=== PATIENT | male | born 1970 | race American Indian/Alaskan Native ===

== ENCOUNTER 2017-09-05 00:55 | Inpatient (IN) | payer OTHER ==
[2017-09-05 01:30] LABS: Basophils # (Auto) 0.2 K/mm3 (0.0-0.1); Basophils % (Auto) 2.5 % (0.0-1.8); Eosinophils # (Auto) 0.4 K/mm3 (0.0-0.4); Eosinophils % (Auto) 3.8 % (0.0-4.3); Hematocrit 40.2 % (35.5-45.6); Hemoglobin 13.9 gm/dl (11.8-15.2); Lymphocytes # (Auto) 3.8 K/mm3 (1.2-5.4); Lymphocytes % (Auto) 39.5 % (13.4-35.0); Mean Corpuscular HGB Conc 35 % (32-34); Mean Corpuscular Hemoglobin 37 pg (28-32); Mean Corpuscular Volume 108 fl (84-94); Monocytes # (Auto) 0.9 K/mm3 (0.0-0.8); Monocytes % (Auto) 8.9 % (0.0-7.3); Platelet Count 158 K/mm3 (140-440); Red Blood Count 3.72 M/mm3 (3.65-5.03); Red Cell Distribution Width 14.2 % (13.2-15.2)
[2017-09-05 02:39] LABS: Alanine Aminotransferase 100 units/L (7-56); Albumin 3.7 g/dL (3.9-5); BUN/Creatinine Ratio 8; Blood Urea Nitrogen 8 mg/dL (9-20); Calcium 8.9 mg/dL (8.4-10.2); Hemolysis Index 10
[2017-09-05] MEDS ORDERED: FOLVITE 1 MG, INFUVITE 10 ML in NACL 0.9% 1000 ML 1,000 ML IV ONE (09:51)
[2017-09-05] MEDS ORDERED: PEPCID IV ONE (09:51)
[2017-09-05] MEDS ORDERED: DILAUDID IV ONE (09:51)
[2017-09-05] MEDS ORDERED: NACL 0.9% 1000 ML 1,000 ML IV ONE (09:51)
[2017-09-05] MEDS ORDERED: ZOFRAN IV ONE (09:51)
[2017-09-05] MEDS ORDERED: ATIVAN IV PRN ×2 (09:52)
[2017-09-05 10:34] LABS: Bilirubin,Urine NEG (Negative); Blood,Urine NEG (Negative); Color,Urine Yellow (Yellow); Mucus,Urine FEW /HPF; Protein,Urine <15 mg/dL mg/dL (Negative)
--- NOTE | 2017-09-05 11:19 | Cat Scan Report ---
CT ABDOMEN PELVIS WITH CONTRAST: HISTORY: abdominal pain. COMPARISON: none. TECHNIQUE: Helical CT in 1.25mm intervals following IV contrast. Sagittal and coronal reconstructions. FINDINGS: Lung bases: Normal. Liver: There is moderate diffuse fatty change throughout the liver. No evidence for mass or surface nodularity. The portal venous system is patent. Biliary system: Normal. Pancreas: A 6.8 cm cyst is identified in the tail of the pancreas, probable pseudocyst. The remaining pancreatic parenchyma is within normal limits. No obvious mass or inflammatory changes. Spleen: Normal. 12.2 cm. Kidneys/ureters/bladder: Normal. Adrenal glands: Normal. Aorta: The aorta is normal caliber with minimal calcific plaques distally. There is mild aneurysmal dilatation of the right common iliac artery measuring up to 2.6 cm. There also appears to be a focal dissection in the right common iliac artery. The remaining iliac arteries are normal. Intestines: Within normal limits given no oral contrast was administered. Appendix: Normal. Ascites: None. Adenopathy: None. Musculoskeletal: Mild thoracolumbar spondylosis is noted. Previous inguinal hernia changes are suspected bilaterally, correlate with history. No recurrent hernia is appreciated. IMPRESSION: No acute inflammatory process. Hepatic steatosis. Pancreatic pseudocyst. 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 This is probably chronic although no comparison studies are available.
--- NOTE | 2017-09-05 12:41 | Emergency Department Report ---
ED Abdominal Pain HPI - General Chief Complaint: Abdominal Pain Stated Complaint: ABD PAIN Time Seen by Provider: 09/05/17 09:39 Source: patient, EMS Mode of arrival: Ambulatory Limitations: No Limitations - History of Present Illness Initial Comments: 47 yo male with a past medical history pancreatitis, bilateral inguinal hernia repair, and alcohol abuse presents to the hospital complaining of epigastric pain is rated 10/10 intensity, sharp, burning, constant, radiating to the back for the past 12 hours prior to arrival. Patient drinks one fifth of whiskey daily with last dose prior to arrival. He gives a history of previous alcohol withdrawal tremors but is unsure if he ever had alcohol withdrawal seizure. This is patient's first visit he states he lives in [place] and she is passing through the [place] area. Severity scale (0 -10): 6 - Related Data Home Medications Medication Instructions Recorded Confirmed Last Taken Unobtainable 09/05/17 09/05/17 Unknown Allergies Allergy/AdvReac Type Severity Reaction Status Date / Time No Known Allergies Allergy Unverified 09/05/17 01:07 ED Review of Systems ROS: Stated complaint: ABD PAIN Other details as noted in HPI Comment: All other systems reviewed and negative Other: Constitutional: No fevers chills Eyes: No eye pain visual changes ENT: No ear pain or throat pain Neck: Denies pain Respiratory: Denies cough wheezing shortness of breath Cardiovascular: Denies chest pain, palpitations, syncope GI: as per hpi : Denies dysuria Musculoskeletal: Denies back pain Skin: Denies rash, lesions, erythema Neurologic: Denies headache, numbness, weakness Psychiatric: Denies suicidal ideation, hallucinations ED Past Medical Hx - Past Medical History Previous Medical History?: Yes Additional medical history: Pancreatitis - Surgical History Past Surgical History?: Yes Additional Surgical History: Hernia - Social History Smoking Status: Current Every Day Smoker Substance Use Type: Alcohol - Medications Home Medications: Home Medications Medication Instructions Recorded Confirmed Last Taken Type Unobtainable 09/05/17 09/05/17 Unknown History ED Physical Exam - General Limitations: No Limitations - Other Other exam information: General: No limitations, patient is alert in no acute distress Head exam: Atraumatic, normocephalic Eyes exam: Normal appearance, pupils equal reactive to light, extraocular movements intact, nonicteric sclera ENT: Moist mucous membrane, normal oropharynx Neck exam: Normal inspection, full range of motion, no meningismus nontender Respiratory exam: Clear to auscultation bilateral, no wheezes, rales, crackles Cardiovascular: Normal rate and rhythm, normal heart sounds Abdomen: Soft, nondistended, epigastric and LUQ tenderness, with normal bowel sounds, no rebound, or guarding Extremity: Full range of motion normal inspection no deformity 2+ DP pulses equal bilaterally Back: Normal Inspection, full range of motion, no tenderness Neurologic: Alert, oriented x3, cranial nerves intact, no motor or sensory deficit Psychiatric: normal affect, normal mood Skin: Warm, dry, intact ED Course Vital Signs 09/05/17 09/05/17 09/05/17 01:02 01:07 10:13 Temperature 98.4 F 98.4 F Pulse Rate 117 H 115 H 110 H Respiratory 18 16 Rate Blood Pressure 122/84 122/84 Blood Pressure 118/73 [Left] O2 Sat by Pulse 93 95 100 Oximetry 09/05/17 13:42 Temperature Pulse Rate 103 H Respiratory 16 Rate Blood Pressure Blood Pressure 133/78 [Left] O2 Sat by Pulse 94 Oximetry - Reevaluation(s) Reevaluation #1: 09/05/17 14:10 Patient may sleep with controlled pain and nausea after Dilaudid, Zofran, and Pepcid given in the ED - Consultations Consultation #1: 09/05/17 12:41 Dr Corey vascular came to evaluation pt. rec admission for ct angio and further workup. Patient received IV contrast to today so therefore cannot receive CT angiogram today ED Medical Decision Making - Lab Data Result diagrams: 09/05/17 01:20 09/05/17 01:20 Lab Results 09/05/17 09/05/17 09/05/17 Range/Units 01:20 01:20 01:20 WBC 9.7 (4.5-11.0) K/mm3 RBC 3.72 (3.65-5.03) M/mm3 Hgb 13.9 (11.8-15.2) gm/dl Hct 40.2 (35.5-45.6) % MCV 108 H (84-94) fl MCH 37 H (28-32) pg MCHC 35 H (32-34) % RDW 14.2 (13.2-15.2) % Plt Count 158 (140-440) K/mm3 Lymph % (Auto) 39.5 H (13.4-35.0) % [place] % (Auto) 8.9 H (0.0-7.3) % Eos % (Auto) 3.8 (0.0-4.3) % Baso % (Auto) 2.5 H (0.0-1.8) % Lymph # 3.8 (1.2-5.4) K/mm3 [place] # 0.9 H (0.0-0.8) K/mm3 Eos # 0.4 (0.0-0.4) K/mm3 Baso # 0.2 H (0.0-0.1) K/mm3 Seg Neutrophils % 45.3 (40.0-70.0) % Seg Neutrophils # 4.4 (1.8-7.7) K/mm3 Sodium 140 (137-145) mmol/L Potassium 4.2 (3.6-5.0) mmol/L Chloride 98.2 (98-107) mmol/L Carbon Dioxide 27 (22-30) mmol/L Anion Gap 19 mmol/L BUN 8 L (9-20) mg/dL Creatinine 1.0 (0.8-1.5) mg/dL Estimated GFR > 60 ml/min BUN/Creatinine Ratio 8 % Glucose 107 H (75-100) mg/dL Calcium 8.9 (8.4-10.2) mg/dL Total Bilirubin 0.40 (0.1-1.2) mg/dL AST 219 H (5-40) units/L ALT 100 H (7-56) units/L Alkaline Phosphatase 113 (35-129) units/L Total Protein 6.7 (6.3-8.2) g/dL Albumin 3.7 L (3.9-5) g/dL Albumin/Globulin Ratio 1.2 % Lipase 54 (13-60) units/L Urine Color (Yellow) Urine Turbidity (Clear) Urine pH (5.0-7.0) Ur Specific [place] (1.003-1.030) Urine Protein (Negative) mg/dL Urine Glucose (UA) (Negative) mg/dL Urine Ketones (Negative) mg/dL Urine Blood (Negative) Urine Nitrite (Negative) Urine Bilirubin (Negative) Urine Urobilinogen (<2.0) mg/dL Ur Leukocyte Esterase (Negative) Urine WBC (Auto) (0.0-6.0) /HPF Urine RBC (Auto) (0.0-6.0) /HPF Urine Mucus /HPF 09/05/17 Range/Units 10:12 WBC (4.5-11.0) K/mm3 RBC (3.65-5.03) M/mm3 Hgb (11.8-15.2) gm/dl Hct (35.5-45.6) % MCV (84-94) fl MCH (28-32) pg MCHC (32-34) % RDW (13.2-15.2) % Plt Count (140-440) K/mm3 Lymph % (Auto) (13.4-35.0) % [place] % (Auto) (0.0-7.3) % Eos % (Auto) (0.0-4.3) % Baso % (Auto) (0.0-1.8) % Lymph # (1.2-5.4) K/mm3 [place] # (0.0-0.8) K/mm3 Eos # (0.0-0.4) K/mm3 Baso # (0.0-0.1) K/mm3 Seg Neutrophils % (40.0-70.0) % Seg Neutrophils # (1.8-7.7) K/mm3 Sodium (137-145) mmol/L Potassium (3.6-5.0) mmol/L Chloride (98-107) mmol/L Carbon Dioxide (22-30) mmol/L Anion Gap mmol/L BUN (9-20) mg/dL Creatinine (0.8-1.5) mg/dL Estimated GFR ml/min BUN/Creatinine Ratio % Glucose (75-100) mg/dL Calcium (8.4-10.2) mg/dL Total Bilirubin (0.1-1.2) mg/dL AST (5-40) units/L ALT (7-56) units/L Alkaline Phosphatase (35-129) units/L Total Protein (6.3-8.2) g/dL Albumin (3.9-5) g/dL Albumin/Globulin Ratio % Lipase (13-60) units/L Urine Color Yellow (Yellow) Urine Turbidity Clear (Clear) Urine pH 5.0 (5.0-7.0) Ur Specific [place] 1.016 (1.003-1.030) Urine Protein <15 mg/dl (Negative) mg/dL Urine Glucose (UA) Neg (Negative) mg/dL Urine Ketones 20 (Negative) mg/dL Urine Blood Neg (Negative) Urine Nitrite Neg (Negative) Urine Bilirubin Neg (Negative) Urine Urobilinogen 2.0 (<2.0) mg/dL Ur Leukocyte Esterase Neg (Negative) Urine WBC (Auto) 1.0 (0.0-6.0) /HPF Urine RBC (Auto) 1.0 (0.0-6.0) /HPF Urine Mucus Few /HPF - Radiology Data Radiology results: report reviewed CT abdomen and pelvis IV contrast: No acute inflammatory process. Hepatic steatosis. Pancreatic pseudocyst. Focal dissection or aneurysmal dilatation of the right common femoral artery. Probably chronic although no comparison studies are available - Medical Decision Making Abdominal pain and vomiting Patient he had pancreatitis but no CT evidence of pancreatitis but positive pseudocyst. 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 Hospitalist informed of admission - Differential Diagnosis alcohol gastritis, PUD, pancreatitis, cholecystitis, biliary colic Critical Care Time: No Critical care attestation.: If time is entered above; I have spent that time in minutes in the direct care of this critically ill patient, excluding procedure time. ED Disposition Clinical Impression: Epigastric pain, Vomiting, Alcohol abuse, Femoral artery aneurysm, right, Elevated LFTs Disposition: OP ADMIT IP TO THIS HOSP Is pt being admited?: Yes Condition: Stable Time of Disposition: 13:26 (Dr Winn/hosp)
[2017-09-05] MEDS ORDERED: PROVENTIL IH PRN (13:28)
[2017-09-05] MEDS ORDERED: DULCOLAX PR PRN (13:28)
[2017-09-05] MEDS ORDERED: MILK OF MAGNESIA PO PRN (13:28)
[2017-09-05] MEDS ORDERED: ZOFRAN IV PRN (13:28)
[2017-09-05] MEDS ORDERED: TYLENOL PO PRN (13:28)
--- NOTE | 2017-09-05 13:28 | History and Physical Report ---
History of Present Illness Chief complaint: My stomach hurts. History of present illness: 47 YO Male with ETOH Abuse, ETOH pancreatitis, Nicotine Dependence presents to ED for evaluation. Pt states that he has experienced abdominal pain for the past 1 day with worsening symptoms over the past 12 hours. Pt states that pain is 10/10, Sharp, constant, burning in nature, which radiates to the back. Pt states that he drinks 750ml of whiskey daily with his most recent use prior to arrival. Pt denies fever, chills, CP, Palpitations, NVD, auditory/visual hallucinations, tremors, seizures, headache, blurred vision, or recent ill contacts. Pt seen and evaluated in ED and found to have a Right Iliac Aneurysm, and Right common Iliac Dissection. Vascular surgery consulted. Pt admitted to med-surg. Past History Past Medical History: other (ETOH Abuse, ETOH pancreatitis, Nicotine Dependence, Obesity) Past Surgical History: hernia repair Social history: single Family history: hypertension Medications and Allergies Allergies Allergy/AdvReac Type Severity Reaction Status Date / Time No Known Allergies Allergy Unverified 09/05/17 01:07 Home Medications Medication Instructions Recorded Confirmed Last Taken Type Unobtainable 09/05/17 09/05/17 Unknown History Active Meds: Active Medications Lorazepam (Ativan) 2 mg IV Q1H PRN PRN Reason: CIWA-Ar 8-15 Lorazepam (Ativan) 4 mg IV Q1H PRN PRN Reason: CIWA-Ar 16-25 Lorazepam (Ativan) 4 mg IV Q15MIN PRN PRN Reason: CIWA-Ar >25 Review of Systems Constitutional: no weight loss, no weight gain, no fever, no chills Ears, nose, mouth and throat: no ear pain, no ear discharge, no tinnitis, no decreased hearing, no nose pain, no nasal congestion, no nasal discharge Cardiovascular: no chest pain, no orthopnea, no palpitations, no rapid/ irregular heart beat, no edema, no syncope Respiratory: no cough, no cough with sputum, no excessive sputum, no hemoptysis , no shortness of breath Gastrointestinal: abdominal pain, no nausea, no vomiting, no diarrhea, no melena , no hematochezia, no loss of appetite, no early satiety, no heartburn Genitourinary Male: no dysuria, no hematuria, no flank pain, no discharge, no urinary frequency, no urinary hesitancy Rectal: no pain, no incontinence, no bleeding Musculoskeletal: no neck stiffness, no neck pain, no shooting arm pain, no arm numbness/tingling, no low back pain, no shooting leg pain Integumentary: no rash, no pruritis, no redness, no sores, no wounds, no jaundice Neurological: no head injury, no transient paralysis, no paralysis, no weakness , no parathesias, no numbness, no tingling, no seizures, no syncope Psychiatric: no anxiety, no memory loss, no change in sleep habits, no sleep disturbances, no insomnia, no hypersomnia, no change in appetite, no change in libido Endocrine: no cold intolerance, no heat intolerance, no polyphagia, no excessive thirst, no polydipsia, no polyuria, no nocturia Hematologic/Lymphatic: no easy bruising, no easy bleeding, no lymphadenopathy, no lymphedema Allergic/Immunologic: no urticaria, no allergic rhinitis, no wheezing, no persistent infections, no anaphylaxis Exam - Constitutional Vitals: Temp Pulse Resp BP Pulse Ox 98.4 F 110 H 16 118/73 100 09/05/17 01:07 09/05/17 10:13 09/05/17 10:13 09/05/17 10:13 09/05/17 10:13 General appearance: Present: mild distress - EENT Eyes: Present: PERRL ENT: hearing intact, clear oral mucosa - Neck Neck: Present: supple, normal ROM - Respiratory Respiratory effort: normal Respiratory: bilateral: CTA - Cardiovascular Heart Sounds: Present: S1 & S2. Absent: rub, click - Extremities Extremities: pulses symmetrical, No edema Peripheral Pulses: within normal limits - Abdominal General gastrointestinal: Present: soft, tender, non-distended, normal bowel sounds Localized gastrointestinal: tender: RLQ Male genitourinary: Present: normal - Integumentary Integumentary: Present: clear, warm, dry - Musculoskeletal Musculoskeletal: gait normal, strength equal bilaterally - Psychiatric Psychiatric: appropriate mood/affect, intact judgment & insight - Neurologic Neurologic: CNII-XII intact, moves all extremities Results - Labs CBC & Chem 7: 09/05/17 01:20 09/05/17 01:20 Labs: Abnormal lab results 09/05/17 09/05/17 Range/Units 01:20 01:20 MCV 108 H (84-94) fl MCH 37 H (28-32) pg MCHC 35 H (32-34) % Lymph % (Auto) 39.5 H (13.4-35.0) % [place] % (Auto) 8.9 H (0.0-7.3) % Baso % (Auto) 2.5 H (0.0-1.8) % [place] # 0.9 H (0.0-0.8) K/mm3 Baso # 0.2 H (0.0-0.1) K/mm3 BUN 8 L (9-20) mg/dL Glucose 107 H (75-100) mg/dL AST 219 H (5-40) units/L ALT 100 H (7-56) units/L Albumin 3.7 L (3.9-5) g/dL Assessment and Plan - Patient Problems (1) Pancreatic pseudocyst Current Visit: Yes Status: Acute Plan to address problem: IVF resuscitation, pain control, anti emetic therapy, CT Abdomen Pelvis, (2) Dissection of right iliac artery Current Visit: Yes Status: Acute Plan to address problem: Vascular surgery consulted, serial physical exam, supportive care. (3) Iliac artery aneurysm, right Current Visit: Yes Status: Acute Plan to address problem: Vascular surgery consulted, pain control, serial physical exam, serial vascular exam. (4) EtOH dependence Current Visit: Yes Status: Acute Qualifiers: Substance use status: alcohol-induced mood disorder Qualified Code(s): F10.24 - Alcohol dependence with alcohol-induced mood disorder Plan to address problem: thiamine, Folic Acid, Multivitamin, CIWA protocol, aspiration precautions, seizure precautions, (5) DVT prophylaxis Current Visit: Yes Status: Acute
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
[2017-09-05] MEDS: ATIVAN IV PRN ×2 (16:44→22:06)
[2017-09-05] MEDS: 1: FOLVITE 1 MG, INFUVITE 10 ML in NACL 0.9% 1000 ML 988.8 ML 2: NACL 0.9% 1000 ML 1,00 IV SCH (19:00)
[2017-09-05] MEDS: HABITROL TD SCH (19:00)
[2017-09-06] MEDS: ATIVAN IV PRN (05:43)
[2017-09-06] MEDS: NACL 0.9% 1000 ML 1,000 ML IV SCH (08:00)
--- NOTE | 2017-09-06 09:27 | Progress Note ---
Assessment and Plan CTA was performed revealing a right common iliac dissection with aneurysmal dilatation. There is no compromise to distal flow, and his vascular exam remains normal. General guidelines recommend treatment of SOCORRO aneurysms above 3.5cm; this patient's is about 2.9cm. I suspect this is chronic and likely due to remote trauma. No specific intervention is needed at this time. 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 Low dose daily aspirin (81mg) may be helpful as well. The patient can follow up in our office after repeat imaging. Subjective Date of service: 09/06/17 Interval history: Restless, agitated overnight. Current complaints of RUQ/epigastric pain. Objective - Constitutional Vitals: Vital Signs - 12hr 09/05/17 09/05/17 09/06/17 21:25 22:00 03:40 Temperature 97.4 F L 98.6 F Pulse Rate 101 H 98 H Respiratory 20 18 24 Rate Blood Pressure 155/95 167/107 O2 Sat by Pulse 93 97 Oximetry 09/06/17 09/06/17 06:26 08:06 Temperature 98.7 F 99.0 F Pulse Rate 99 H Respiratory 20 18 Rate Blood Pressure 132/93 136/87 O2 Sat by Pulse 92 Oximetry General appearance: Present: mild distress - EENT ENT: hearing intact, clear oral mucosa - Neck Neck: supple, normal ROM - Respiratory Respiratory effort: normal Extremities: pulses intact, No edema, normal color, Full ROM - Gastrointestinal Localized gastrointestinal: tender: RUQ, epigastric periumbilical, guarding: RUQ , epigastric periumbilical - Labs CBC & Chem 7: 09/05/17 01:20 09/05/17 01:20 Labs: Abnormal lab results 09/06/17 Range/Units 05:53 POC Glucose 106 H (70-105)
--- NOTE | 2017-09-06 09:40 | Cat Scan Report ---
CT ANGIOGRAM ABDOMEN AND PELVIS HISTORY: Right common iliac artery dissection. TECHNIQUE: Helical CT following IV contrast. Sagittal and coronal reformatted images. Rotational MIP images. FINDINGS: Compared to the CT abdomen pelvis with contrast performed 09/05/17. There is a focal dissection originating near the origin of the right common iliac artery and terminating just before the origin of the right external iliac artery. This dissection measures approximately 6-7 cm in length. There is no evidence for stenosis. Minimal atherosclerotic disease is identified in this area. There is mild aneurysmal dilatation of the right common iliac artery up to 2.5 cm. The remaining arterial structures in the abdomen and pelvis are normal limits less than 20% stenosis. The remainder of the examination is unchanged. IMPRESSION: Focal dissection in the right common iliac artery as described.
[2017-09-06] MEDS: VITAMIN B-1 PO SCH (11:26)
[2017-09-06] MEDS: HABITROL TD SCH (11:26)
[2017-09-06] MEDS ORDERED: Fluarix Quad 2017-2018(36 MOS+ IM ONE (12:00)
--- NOTE | 2017-09-06 12:05 | Progress Note ---
Assessment and Plan // Pancreatitis with pancreatic pseudocyst cont IVF resuscitation, pain control, anti emetic therapy, CT Abdomen Pelvis noted, Advance diet as tolerated // Dissection of right iliac artery Vascular surgery consulted, serial physical exam, supportive care. control BP, no intervention now, repeat CT in 6 months for f/u // EtOH dependence with withdrawl thiamine, Folic Acid, Multivitamin, change CIWA protocol with librium, aspiration precautions, seizure precautions, // DVT prophylaxis lovenox Brief history: 47 YO Male with ETOH Abuse, ETOH pancreatitis, Nicotine Dependence presents to ED for evaluation. Pt states that he has experienced abdominal pain for the past 1 day with worsening symptoms over the past 12 hours Radiological test: CT/CTA of abdomen pelvis: pancreatic pseudocyst, focal dissection of right iliac artery Hospitalist Physical exam: GENERAL: well-developed and well-nourished WM lying on bed appeared to be in no discomfort. HEENT: Normocephalic. Atraumatic. No conjunctival congestion or icterus. Patient has moist mucous membranes. NECK: Supple. Trachea midline. CHEST/LUNGS: Clear to auscultated bilaterally, breathing nonlabored. No wheezes crackles or rhonchi. HEART/CARDIOVASCULAR: Regular in rate and rhythm. S1 and S2 positive. ABDOMEN: Abdomen is soft, nontender. Patient has normal bowel sounds. SKIN: There is no rash. Warm and dry. NEURO: No focal motor deficit. Follows command. positive asterisks MUSCULOSKELETAL: No joint effusion or tenderness. EXTRIMITY: No edema, no cyanosis or clubbing. PSYCH: Cooperative. Subjective Date of service: 09/06/17 Interval history: Patient seen and examined. Medical records and medication list reviewed. No acute event overnight noted by the RN. Patient denies any chest pain or difficulty breathing. Patient is tolerating diet. c/o abdominal pain and nausea Discussed plan of care at bedside with patient. Objective - Constitutional Vitals: Vital Signs - 12hr 09/06/17 09/06/17 09/06/17 03:40 06:26 08:06 Temperature 98.6 F 98.7 F 99.0 F Pulse Rate 98 H 99 H Respiratory 24 20 18 Rate Blood Pressure 167/107 132/93 136/87 O2 Sat by Pulse 97 92 Oximetry 09/06/17 09/06/17 10:00 10:55 Temperature 98.7 F Pulse Rate 92 H Respiratory 18 Rate Blood Pressure 146/98 O2 Sat by Pulse 100 93 Oximetry - Labs CBC & Chem 7: 09/05/17 01:20 09/05/17 01:20 Labs: Abnormal lab results 09/06/17 Range/Units 05:53 POC Glucose 106 H (70-105)
[2017-09-06] MEDS: 1: FOLVITE 1 MG, INFUVITE 10 ML in NACL 0.9% 1000 ML 988.8 ML 2: NACL 0.9% 1000 ML 1,00 IV SCH ×2 (12:34→12:35)
[2017-09-06] MEDS ORDERED: FOLVITE 1 MG, INFUVITE 10 ML in NACL 0.9% 1000 ML 1,000 ML IV ONE (14:00)
[2017-09-06] MEDS ORDERED: PERCOCET 5/325 PO PRN (16:30)
[2017-09-06] MEDS ORDERED: LIBRIUM PO PRN (16:31)
[2017-09-06] MEDS ORDERED: ATIVAN IV ONE (20:45)
[2017-09-07] MEDS: PERCOCET 5/325 PO PRN ×2 (01:59→09:23)
[2017-09-07] MEDS: NACL 0.9% 1000 ML 1,000 ML IV SCH (03:20)
[2017-09-07] MEDS: VITAMIN B-1 PO SCH (09:22)
[2017-09-07] MEDS: HABITROL TD SCH (09:23)
[2017-09-07] MEDS ORDERED: FOLVITE PO SCH (10:00)
[2017-09-07] MEDS ORDERED: THERAGRAN Tab PO SCH (10:00)
[2017-09-07] MEDS ORDERED: APRESOLINE IV PRN (12:55)
[2017-09-07] MEDS ORDERED: CATAPRES PO SCH (13:00)
--- NOTE | 2017-09-07 13:02 | Discharge Summary ---
Providers - Providers Date of Admission: 09/05/17 13:28 Date of discharge: 09/07/17 Attending physician: JACKSON FRAAH 09/05/17 12:36 Consult to Physician [CONS] Urgent Consulting Provider: HUNTER CHOUDHURY Reason For Exam: r margarita iliac artery dissection and aneurysm Notified:: y Primary care physician: HEATER INSTALLER Hospitalization Condition: Stable Hospital course: Brief history: 47 YO Male with ETOH Abuse, ETOH pancreatitis, Nicotine Dependence presents to ED with c/o abdominal pain for the past 1 day. Pt stated that he drinks 750ml of whiskey daily with his most recent use prior to arrival. 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 Vascular surgery was consulted. Pt was admitted to med-surg for pancreatitis and possible Dissection of right iliac artery. Patient was placed on thiamin, folic acid, vascular surgeon recommended outpt follow up in [address] He was tolerating diet and no vomiting episode. He was then discharged home in stable condition. Discharge diagnosis and management: // Acute on chronic Pancreatitis with pancreatic pseudocyst managed with IVF resuscitation, pain control, anti emetic therapy, CT Abdomen Pelvis obtained showed pancreatic pseudocyst. Advanced diet as tolerated. lipase level was normal. // Dissection of right iliac artery Vascular surgery consulted, monitored with serial physical exam, Monitored BP, no intervention now per vascular, repeat CT in 6 months for f/u // EtOH dependence/abuse placed on thiamine, Folic Acid, Multivitamin, CIWA protocol with librium placed to prevent from withdrawl, aspiration precautions, seizure precaution, counselled for cessation // DVT prophylaxis lovenox Radiological test: CT/CTA of abdomen pelvis: pancreatic pseudocyst, focal dissection of right iliac artery Hospitalist Physical exam: GENERAL: well-developed and well-nourished WM lying on bed appeared to be in no discomfort. HEENT: Normocephalic. Atraumatic. No conjunctival congestion or icterus. Patient has moist mucous membranes. NECK: Supple. Trachea midline. CHEST/LUNGS: Clear to auscultated bilaterally, breathing nonlabored. No wheezes crackles or rhonchi. HEART/CARDIOVASCULAR: Regular in rate and rhythm. S1 and S2 positive. ABDOMEN: Abdomen is soft, nontender. Patient has normal bowel sounds. SKIN: There is no rash. Warm and dry. NEURO: No focal motor deficit. Follows command. positive asterisks MUSCULOSKELETAL: No joint effusion or tenderness. EXTRIMITY: No edema, no cyanosis or clubbing. PSYCH: Cooperative. Disposition: DC-01 TO HOME OR SELFCARE Time spent for discharge: 32 minutes Core Measure Documentation - Palliative Care Palliative Care/ Comfort Measures: Not Applicable - Core Measures Any of the following diagnoses?: none Exam - Constitutional Vitals: Temp Pulse Resp BP Pulse Ox 97.9 F 87 22 163/111 92 09/07/17 12:10 09/07/17 12:10 09/07/17 12:10 09/07/17 12:10 09/07/17 12:10 Plan Activity: advance as tolerated Weight Bearing Status: Weight Bear as Tolerated Diet: low fat, low salt Additional Instructions: f/u with vascular surgeon for repeat CT abdomen in 6 months Follow up with: PRIMARY CARE, [Primary Care Provider] - 3-5 Days Prescriptions: Aspirin EC [Aspirin Enteric Coated TAB] 81 mg PO QDAY #30 tablet. cloNIDine [Catapres] 0.2 mg PO Q12HR #60 tablet Folic Acid [Folvite] 1 mg PO DAILY #30 tablet oxyCODONE /ACETAMINOPHEN [Percocet 5/325 mg] 1.5 tab PO Q6H PRN #14 tablet PRN Reason: Pain , Severe (7-10) Thiamine [Vitamin B-1] 100 mg PO QDAY #30 tablet
[2017-09-07] MEDS ORDERED: BABY ASPIRIN PO SCH (14:00)
[2017-09-07 16:02] VITALS: BP 159/107
== END 2017-09-07 17:10 | disposition home or self-care (01) | DRG 438 ==
LOC: ED 00:55 → 3A 13:28
PROVIDERS: ADMIT Internal Medicine; ATTEND Internal Medicine
PROC: 3E0234Z Introduction of Serum, Toxoid and Vaccine into Muscle, Percutaneous Approach (ICD-10-PCS; principal; 2017-09-06)
DX: K85.90 Acute pancreatitis without necrosis or infection, unspecified (principal); I77.72 Dissection of iliac artery; K86.3 Pseudocyst of pancreas; I72.4 Aneurysm of artery of lower extremity; F17.200 Nicotine dependence, unspecified, uncomplicated; Y90.9 Presence of alcohol in blood, level not specified; I72.3 Aneurysm of iliac artery; F10.20 Alcohol dependence, uncomplicated; Z82.49 Family history of ischemic heart disease and other diseases of the circulatory system; Z23 Encounter for immunization
CPT/HCPCS: 36415; 74174; 74177; 80053; 81001; 82962; 83690; 84484; 85025; 90686; 94760; 96365; 96366; 96375; J1170; J2060; J2405; J7030; Q9967